=== PATIENT | female | born 1990 | race African-American/Black ===

== ENCOUNTER 2019-05-23 21:03 | Emergency (ER) | payer OTHER ==
[2019-05-23 21:27] LABS: BILIRUBIN,URINE NEGATIVE (NEGATIVE); GLUCOSE, URINE (UA) NEGATIVE (NEGATIVE); KETONES,URINE (UA) NEGATIVE (NEGATIVE); LEUKOCYTE ESTERASE, URINE NEGATIVE (NEGATIVE); NITRITE,URINE NEGATIVE (NEGATIVE); OCCULT BLOOD,URINE NEGATIVE (NEGATIVE); PROTEIN,URINE NEGATIVE (NEGATIVE); UROBILINOGEN,URINE 0.2 (NORMAL) E.U./dL (NORMAL)
[2019-05-23 21:29] LABS: CLARITY,URINE CLEAR (CLEAR); HCG UR QUAL NEGATIVE
--- NOTE | 2019-05-23 21:29 | ED Physician Documentation ---
PD HPI ABD PAIN - Stated complaint Stated Complaint: FEM /BK PX - Chief complaint Chief Complaint: UTI - History obtained from History obtained from: Patient - History of Present Illness Timing - onset: How many weeks ago (1-2) Timing - duration: Weeks (1-2) Timing - details: Gradual onset (She was having lower abdominal cramping and some dysuria and frequency. She was seen in clinic and she relates that she was told she had some blood in her urine and was going to be treated for a bladder infection based on her symptoms. She was treated with Macrobid for a week without any change or improvement. She was seen back in the clinic and changed to ciprofloxacin. She states there was some white cells on her urine. It is unclear if there was a culture done. Last 2 days since starting the Cipro she has had nausea and diarrhea. She denies any vomiting.) Quality: Cramping, Aching Location: Suprapubic Radiation: No: Lower back Improved by: No: Eating Worsened by: No: Eating Associated symptoms: Nausea, Diarrhea (for 2 days), Dysuria (1-2 weeks). No: Fever Similar symptoms before: Has not had sx before Recently seen: Clinic Review of Systems Constitutional: denies: Fever, Chills, Myalgias Nose: denies: Rhinorrhea / runny nose, Congestion Throat: denies: Sore throat Respiratory: denies: Cough GI: reports: Nausea, Diarrhea. denies: Abdominal Pain, Vomiting, Constipation : reports: Dysuria, Frequency. 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 - Present Medications Home Medications: Ambulatory Orders Medication Instructions Recorded Confirmed Ciprofloxacin [Cipro] 500 mg PO BID 05/23/19 05/23/19 Diphenoxylate/Atropine [Lomotil] 1 each PO QID PRN #12 tablet 05/24/19 Metronidazole [Flagyl] 500 mg PO BID #14 tablet 05/24/19 Ondansetron Odt [Zofran] 4 mg TL Q6H PRN #10 tablet 05/24/19 - Allergies Allergies/Adverse Reactions: Allergies Allergy/AdvReac Type Severity Reaction Status Date / Time No Known Drug Allergies Allergy Verified 05/23/19 21:12 - Social History Does the pt smoke?: No Smoking Status: Never smoker Does the pt drink ETOH?: No Does the pt have substance abuse?: No - Immunizations Immunizations are current?: Yes - POLST Patient has POLST: No PD ED PE NORMAL - Vitals Vital signs reviewed: Yes - General General: Alert and oriented X 3, No acute distress, Well developed/nourished - HEENT HEENT: Pharynx benign - Neck Neck: Supple, no meningeal sign, No adenopathy - Cardiac Cardiac: RRR, No murmur - Respiratory Respiratory: Clear bilaterally - Abdomen Abdomen: Soft, Non tender - Female Female : 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 The vaginal vault shows a white milky discharge with malodor. There is no endocervical discharge. Uterus is nontender.) - Rectal Rectal: Deferred - Derm Derm: Normal color, Warm and dry Results - Vitals Vitals: Vital Signs - 24 hr 05/23/19 05/23/19 05/23/19 21:09 22:49 23:57 Temperature 37.0 C 37.3 C Heart Rate 87 73 62 Respiratory 18 15 16 Rate Blood Pressure 135/74 H 137/71 H 109/67 O2 Saturation 98 98 98 Oxygen O2 Source Room air - Labs Labs: Laboratory Tests 05/23/19 05/23/19 05/23/19 21:20 21:20 21:37 WBC 9.1 RBC 4.35 Hgb 12.7 Hct 37.4 MCV 86.0 MCH 29.2 MCHC 34.0 RDW 12.1 Plt Count 281 MPV 10.0 Neut # (Auto) 5.1 Lymph # (Auto) 3.3 [place] # (Auto) 0.5 Eos # (Auto) 0.1 Baso # (Auto) 0.1 Absolute Nucleated RBC 0.00 Nucleated RBC % 0.0 Sodium Potassium Chloride Carbon Dioxide Anion Gap BUN Creatinine Estimated GFR (MDRD) Glucose Calcium Total Bilirubin AST ALT Alkaline Phosphatase Total Protein Albumin Globulin Albumin/Globulin Ratio Lipase Urine Color YELLOW Urine Clarity CLEAR Urine pH 6.0 Ur Specific [place] <=1.005 <1.005 Urine Protein NEGATIVE Urine Glucose (UA) NEGATIVE Urine Ketones NEGATIVE Urine Occult Blood NEGATIVE Urine Nitrite NEGATIVE Urine Bilirubin NEGATIVE Urine Urobilinogen 0.2 (NORMAL) Ur Leukocyte Esterase NEGATIVE Ur Microscopic Review NOT INDICATED Urine Culture Comments NOT INDICATED Urine HCG, Qual NEGATIVE C. glabrata (PCR) C. krusei (PCR) Renee species DNA T. vaginalis (PCR) Bact Vaginosis (PCR) 05/23/19 05/23/19 21:37 22:41 WBC RBC Hgb Hct MCV MCH MCHC RDW Plt Count MPV Neut # (Auto) Lymph # (Auto) [place] # (Auto) Eos # (Auto) Baso # (Auto) Absolute Nucleated RBC Nucleated RBC % Sodium 137 Potassium 3.5 Chloride 103 Carbon Dioxide 23 Anion Gap 11.0 BUN 12 Creatinine 0.8 Estimated GFR (MDRD) 103 Glucose 127 H Calcium 9.3 Total Bilirubin 0.6 AST 17 ALT 16 Alkaline Phosphatase 52 Total Protein 7.9 Albumin 4.3 Globulin 3.6 Albumin/Globulin Ratio 1.2 Lipase 29 Urine Color Urine Clarity Urine pH Ur Specific [place] Urine Protein Urine Glucose (UA) Urine Ketones Urine Occult Blood Urine Nitrite Urine Bilirubin Urine Urobilinogen Ur Leukocyte Esterase Ur Microscopic Review Urine Culture Comments Urine HCG, Qual C. glabrata (PCR) NEGATIVE C. krusei (PCR) NEGATIVE Renee species DNA NEGATIVE T. vaginalis (PCR) NEGATIVE Bact Vaginosis (PCR) NEGATIVE PD MEDICAL DECISION MAKING - ED course Complexity details: reviewed results (Her pelvic exam was consistent with vaginitis. I think that was the origin of her symptoms in the first place. Her diarrhea now is likely antibiotic related so will stop the ciprofloxacin and go with some antiemetic and change her to Flagyl.), considered differential (It is unclear whether she originally had a UTI as she states her urine test had showed a little blood not obvious infection. Her urine today looks normal but may be because she is partly treated on the antibiotic. However her symptoms would be suggestive of other cause such as vaginitis and will do a pelvic exam.), d/w patient Departure - Departure Disposition: 01 Home, Self Care Clinical Impression: Bacterial vaginitis, Antibiotic-associated diarrhea, Nausea Condition: Stable Record reviewed to determine appropriate education?: Yes Instructions: ED Vaginosis Bacterial Follow-Up: GLENYS PARKINSON [Primary Care Provider] - Prescriptions: Diphenoxylate/Atropine [Lomotil] 1 each PO QID PRN #12 tablet PRN Reason: Diarrhea Metronidazole [Flagyl] 500 mg PO BID #14 tablet Ondansetron Odt [Zofran] 4 mg TL Q6H PRN #10 tablet PRN Reason: Nausea / Vomiting Comments: Ofloxacin. I would assume your nausea and diarrhea will taper down over the next day or 2 once off of that. Use ondansetron if needed for nausea and Lomotil if needed for diarrhea. Tylenol if needed for cramps or pains. Add the hydrocodone if needed and you have 4 tablets of that. Your exam looks consistent with a bacterial vaginitis. We will have you take metronidazole twice daily for a week for the infection. This antibiotic should not give you the diarrhea like the other one. Recheck if not improved well over the next couple of days. Discharge Date/Time: 05/24/19 00:15
[2019-05-23 21:43] LABS: BASOPHILS # (AUTO) 0.1 10^3/uL (0.0-0.1); BASOPHILS % (AUTO) 0.7 %; EOSINOPHILS # (AUTO) 0.1 10^3/uL (0.0-0.7); EOSINOPHILS % (AUTO) 1.4 %; HGB - HEMOGLOBIN 12.7 g/dL (12.0-16.0); LYMPHOCYTES # (AUTO) 3.3 10^3/uL (1.5-3.5); LYMPHOCYTES % (AUTO) 36.1 %; MEAN CORPUSCULAR HEMOGLOBIN 29.2 pg (27.0-31.0); MONOCYTES # (AUTO) 0.5 10^3/uL (0.0-1.0); MONOCYTES % (AUTO) 5.7 %; NEUTROPHILS # (AUTO) 5.1 10^3/uL (1.5-6.6); NEUTROPHILS % (AUTO) 55.9 %; PLT - PLATELET COUNT 281 10^3/uL (130-450); RED BLOOD COUNT 4.35 10^6/uL (4.20-5.40); RED CELL DISTRIBUTION WIDTH 12.1 % (12.0-15.0); WHITE BLOOD COUNT 9.1 x10^3/uL (4.8-10.8)
[2019-05-23] MEDS ORDERED: ONDANSETRON 4 MG/2 ML VIAL IVP STA (21:54)
[2019-05-23] MEDS ORDERED: KETOROLAC 15 MG/ML VIAL IVP STA (21:54)
[2019-05-23] MEDS ORDERED: MORPHINE 2 MG/ML CARPUJECT IVP STA (21:54)
[2019-05-23] MEDS ORDERED: SODIUM CHLORIDE 0.9% 1,000 ML IV ONE (21:54)
[2019-05-23 21:55] LABS: ALBUMIN 4.3 g/dL (3.2-5.5); ALBUMIN/GLOBULIN RATIO 1.2 (1.0-2.2); BILIRUBIN,TOTAL 0.6 mg/dL (0.2-1.0); CALCIUM 9.3 mg/dL (8.5-10.3); CREATININE 0.8 mg/dL (0.4-1.0); TOTAL PROTEIN 7.9 g/dL (6.7-8.2)
[2019-05-23] MEDS ORDERED: ONDANSETRON ODT 4 MG Prepack 2 TL PRN (22:49)
[2019-05-23] MEDS ORDERED: metroNIDAZOLE 500 MG/100 ML 500 MG/100 ML BAG IV ONE (22:49)
[2019-05-23] MEDS ORDERED: HYDROcod/ACET 5/325 Prepack 4 PO STA (22:50)
[2019-05-23] MEDS ORDERED: DIPHENOX/ATROPINE 2.5/0.025 MG TABLET PO STA (22:50)
[2019-05-23 23:59] VITALS: BP 109/67
[2019-05-24 01:09] LABS: CANDIDA GROUP DNA NEGATIVE (NEGATIVE); CANDIDA KRUSEI DNA NEGATIVE (NEGATIVE); TRICHOMONAS VAGINALIS DNA NEGATIVE (NEGATIVE)
[2019-05-24 22:17] LABS: TRICHOMONAS VAGINALIS DNA NEGATIVE (NEGATIVE)
== END 2019-05-24 00:15 | disposition home or self-care (01) ==
LOC: ED 21:03
DX: N76.0 Acute vaginitis (principal); K52.1 Toxic gastroenteritis and colitis; R11.0 Nausea; T36.8X5A Adverse effect of other systemic antibiotics, initial encounter
CPT/HCPCS: 36415; 80053; 81003; 81025; 83690; 85025; 87481; 87491; 87591; 87661; 87801; 96361; 96365; 96375; 99284; A9270; 81001; 87086

== ENCOUNTER 2019-09-27 15:41 | Emergency (ER) | payer OTHER ==
[2019-09-27 16:24] LABS: BASOPHILS % (AUTO) 0.5 %; EOSINOPHILS % (AUTO) 0.2 %; HGB - HEMOGLOBIN 12.7 g/dL (12.0-16.0); LYMPHOCYTES # (AUTO) 2.3 10^3/uL (1.5-3.5); LYMPHOCYTES % (AUTO) 26.3 %; MEAN CORPUSCULAR HGB CONC 33.6 g/dL (32.0-36.0); MEAN CORPUSCULAR VOLUME 89.2 fL (81.0-99.0); MEAN PLATELET VOLUME 9.8 fL (7.9-10.8); MONOCYTES # (AUTO) 0.5 10^3/uL (0.0-1.0); MONOCYTES % (AUTO) 5.5 %; NEUTROPHILS # (AUTO) 5.8 10^3/uL (1.5-6.6); NEUTROPHILS % (AUTO) 67.2 %; PLT - PLATELET COUNT 278 10^3/uL (130-450); RED BLOOD COUNT 4.24 10^6/uL (4.20-5.40); RED CELL DISTRIBUTION WIDTH 12.2 % (12.0-15.0); WHITE BLOOD COUNT 8.7 x10^3/uL (4.8-10.8)
[2019-09-27 16:41] LABS: ALBUMIN 4.5 g/dL (3.2-5.5); ALBUMIN/GLOBULIN RATIO 1.5 (1.0-2.2); BILIRUBIN,TOTAL 0.9 mg/dL (0.2-1.0); CALCIUM 9.1 mg/dL (8.5-10.3); CREATININE 0.6 mg/dL (0.4-1.0); TOTAL PROTEIN 7.5 g/dL (6.7-8.2)
--- NOTE | 2019-09-27 17:57 | ED Physician Documentation ---
History of Present Illness - Stated complaint Stated Complaint: PELVIC CRAMPING/VAGINAL BLEEDING - Chief complaint Chief Complaint: Abd Pain - History obtained from History obtained from: Patient, Family - History of Present Illness Timing: Today Pain level max: 3 Pain level now: 2 - Additonal information Additional information: 29-year-old female, 1 para 0. She states she is approximately 7 weeks . Started having vaginal bleeding approximately an hour ago. Also lower abdominal cramping. She states that she has not yet changed a pad. No change in sexual partners. No vaginal discharge. Nothing makes it better or worse. 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 - Present Medications Home Medications: Ambulatory Orders Medication Instructions Recorded Confirmed Ciprofloxacin [Cipro] 500 mg PO BID 05/23/19 05/23/19 Diphenoxylate/Atropine [Lomotil] 1 each PO QID PRN #12 tablet 05/24/19 Metronidazole [Flagyl] 500 mg PO BID #14 tablet 05/24/19 Ondansetron Odt [Zofran] 4 mg TL Q6H PRN #10 tablet 05/24/19 - Allergies Allergies/Adverse Reactions: Allergies Allergy/AdvReac Type Severity Reaction Status Date / Time No Known Drug Allergies Allergy Verified 09/27/19 15:43 - Living Situation Living Situation: reports: With family Living Arrangement: reports: At home - Social History Does the pt smoke?: No Smoking Status: Never smoker Does the pt drink ETOH?: No Does the pt have substance abuse?: No - Family History Family history: reports: Non contributory - Immunizations Immunizations are current?: Yes - POLST Patient has POLST: No PD ED PE NORMAL - Vitals Vital signs reviewed: Yes - General General: Alert and oriented X 3, No acute distress - HEENT HEENT: Moist mucous membranes - Neck Neck: Supple, no meningeal sign - Cardiac Cardiac: RRR, Strong equal pulses - Respiratory Respiratory: No respiratory distress, Clear bilaterally - Abdomen Abdomen: Soft, Non tender, Non distended - Female Female : Pt declined - Back Back: No CVA TTP - Derm Derm: Warm and dry, No rash - Extremities Extremities: No edema - Neuro Neuro: Alert and oriented X 3 - Psych Psych: Normal mood, Normal affect Results - Vitals Vitals: Vital Signs - 24 hr 09/27/19 09/27/19 15:43 18:44 Temperature 36.8 C 37.3 C Heart Rate 103 H 97 Respiratory 14 18 Rate Blood Pressure 140/76 H 134/73 H O2 Saturation 100 98 Oxygen O2 Source Room air - Labs Labs: Laboratory Tests 09/27/19 09/27/19 09/27/19 16:17 16:17 16:17 WBC 8.7 RBC 4.24 Hgb 12.7 Hct 37.8 MCV 89.2 MCH 30.0 MCHC 33.6 RDW 12.2 Plt Count 278 MPV 9.8 Neut # (Auto) 5.8 Lymph # (Auto) 2.3 [place] # (Auto) 0.5 Eos # (Auto) 0.0 Baso # (Auto) 0.0 Absolute Nucleated RBC 0.00 Nucleated RBC % 0.0 Sodium 136 Potassium 3.3 L Chloride 102 Carbon Dioxide 25 Anion Gap 9.0 BUN 9 Creatinine 0.6 Estimated GFR (MDRD) 143 Glucose 100 Calcium 9.1 Total Bilirubin 0.9 AST 17 ALT 18 Alkaline Phosphatase 42 Total Protein 7.5 Albumin 4.5 Globulin 3.0 Albumin/Globulin Ratio 1.5 Lipase 25 HCG, Quant 8918.00 Blood Type Blood Type Recheck 09/27/19 09/27/19 16:17 16:55 WBC RBC Hgb Hct MCV MCH MCHC RDW Plt Count MPV Neut # (Auto) Lymph # (Auto) [place] # (Auto) Eos # (Auto) Baso # (Auto) Absolute Nucleated RBC Nucleated RBC % Sodium Potassium Chloride Carbon Dioxide Anion Gap BUN Creatinine Estimated GFR (MDRD) Glucose Calcium Total Bilirubin AST ALT Alkaline Phosphatase Total Protein Albumin Globulin Albumin/Globulin Ratio Lipase HCG, Quant Blood Type A POSITIVE Blood Type Recheck A POSITIVE - Rads (name of study) OB US Radiology: Prelim report reviewed, EMP read contemporaneously, See rad report (. Single intrauterine at EGA 5 weeks 5 days with FABIÁN 05/24/2020 based on crown-rump length, which is discordant with clinical dates. 2. No heartbeat identified. ) PD MEDICAL DECISION MAKING - ED course Complexity details: reviewed results, re-evaluated patient, considered differential, d/w patient ED course: 29-year-old female, 1 para 0 with vaginal bleeding. Has a single i ntrauterine EGA X 5 days. No heartbeat identified. We will have her follow-up with her doctor for repeat hCG. She has an appointment with OB in 3 days. No evidence of ectopic . Patient counseled regarding signs and symptoms for which I believe and urgent re-evaluation would be necessary. Patient with good understanding of and agreement to plan and is comfortable going home at this time This document was made in part using voice recognition software. While efforts are made to proofread this document, sound alike and grammatical errors may occur. Departure - Departure Disposition: 01 Home, Self Care Clinical Impression: Threatened affecting intrauterine Condition: Good Instructions: ED Miscarriage Poss Follow-Up: GLENYS PARKINSON [Primary Care Provider] - Within 3 Days Comments: Follow-up with your doctor for repeat hCG in 3 days. Your hCG level is approximately 9000 today. Your ultrasound shows an intrauterine with an estimated gestational age of 5 weeks and 5 days. Discharge Date/Time: 09/27/19 19:08
--- NOTE | 2019-09-27 18:40 | Ultrasound Report ---
Reason: cramping, bleeding, 7 weeks preg Procedure Date: 09/27/2019 Accession Number: [id number] / [id number] Procedure: US - OB First Trimester CPT Code: Final Report FULL RESULT: EXAM: FIRST TRIMESTER OBSTETRIC ULTRASOUND (Less than 11 weeks) EXAM DATE: 09/27/2019 05:31 PM. CLINICAL HISTORY: Cramping for 2 days. Bleeding. 7 weeks preg. LMP: 08/06/2019. COMPARISONS: None. TECHNIQUE: Transabdominal and transvaginal ultrasound examination with static image documentation. CLINICAL DATES: EGA 7 weeks 3 days with FABIÁN 05/12/2020 based on LMP. ASSESSMENT: Gestational Sac: Single intrauterine. Mean gestational sac diameter: 13.4 mm = 6 weeks 1 day. Embryo: CRL (crown-rump length) 2.0 mm = 5 weeks 5 days. Cardiac activity: None visualized. Yolk sac: 1.6 mm. Amniotic fluid: Not accurately assessed at this gestational age. Early placenta: Not visible at this gestational age. Other: Two perigestational fluid collections noted, 0.6 x 0.2 x 0.3 cm on the left, 0.5 x 0.3 x 0.2 cm on the right. MATERNAL STRUCTURES: Uterus: Anterior. Unremarkable. Cervix: Closed. Right Ovary/Adnexa: The ovary measures 4.8 x 2.5 x 3.3 cm, volume 18.4 cc. Unremarkable. Left Ovary/Adnexa: The ovary measures 2.1 x 1.2 x 1.8 cm, volume 2.4 cc. Unremarkable. Free Fluid: Small amount. Other: None. IMPRESSION: 1. Single intrauterine at EGA 5 weeks 5 days with FABIÁN 05/24/2020 based on crown-rump length, which is discordant with clinical dates. 2. No heartbeat identified. RADIA
[2019-09-27 18:45] VITALS: BP 134/73
== END 2019-09-27 19:08 | disposition home or self-care (01) ==
LOC: ED 15:41
DX: O20.0 Threatened abortion (principal); Z3A.01 Less than 8 weeks gestation of pregnancy
CPT/HCPCS: 36415; 76801; 80053; 83690; 84702; 85025; 86900; 86901; 99283; 99284

== ENCOUNTER 2021-08-16 08:00 | Outpatient (CLI) | payer OTHER ==
[2021-08-18 20:19] LABS: BACTERIAL VAGINOSIS DNA NEGATIVE (NEGATIVE); CANDIDA GLABRATA DNA NEGATIVE (NEGATIVE); CANDIDA GROUP DNA NEGATIVE (NEGATIVE); CANDIDA KRUSEI DNA NEGATIVE (NEGATIVE); TRICHOMONAS VAGINALIS DNA NEGATIVE (NEGATIVE)
== END 2021-08-16 23:59 | disposition home or self-care (01) ==
LOC: LAB.WC 08:00
PROVIDERS: ATTEND Obstetrics & Gynecology
DX: O99.891 Other specified diseases and conditions complicating pregnancy (principal); N89.8 Other specified noninflammatory disorders of vagina
CPT/HCPCS: 87661; 87801

== ENCOUNTER 2021-08-24 12:25 | Outpatient (CLI) | payer OTHER ==
[2021-08-24 13:09] LABS: BASOPHILS % (AUTO) 0.3 %; EOSINOPHILS # (AUTO) 0.1 10^3/uL (0.0-0.7); EOSINOPHILS % (AUTO) 0.6 %; HCT - HEMATOCRIT 38.9 % (37.0-47.0); HGB - HEMOGLOBIN 13.7 g/dL (12.0-16.0); LYMPHOCYTES # (AUTO) 2.2 10^3/uL (1.5-3.5); LYMPHOCYTES % (AUTO) 22.1 %; MEAN CORPUSCULAR HEMOGLOBIN 30.6 pg (27.0-31.0); MEAN CORPUSCULAR HGB CONC 35.2 g/dL (32.0-36.0); MEAN PLATELET VOLUME 9.9 fL (7.9-10.8); MONOCYTES # (AUTO) 0.4 10^3/uL (0.0-1.0); MONOCYTES % (AUTO) 4.3 %; NEUTROPHILS # (AUTO) 7.2 10^3/uL (1.5-6.6); NEUTROPHILS % (AUTO) 72.4 %; PLT - PLATELET COUNT 266 10^3/uL (130-450); RED BLOOD COUNT 4.47 10^6/uL (4.20-5.40); RED CELL DISTRIBUTION WIDTH 11.8 % (12.0-15.0)
[2021-08-24 13:26] LABS: BILIRUBIN,URINE NEGATIVE (NEGATIVE); GLUCOSE, URINE (UA) NEGATIVE (NEGATIVE); KETONES,URINE (UA) NEGATIVE (NEGATIVE); LEUKOCYTE ESTERASE, URINE NEGATIVE (NEGATIVE); NITRITE,URINE NEGATIVE (NEGATIVE); OCCULT BLOOD,URINE NEGATIVE (NEGATIVE); PH,URINE 6.5 PH (5.0-7.5); PROTEIN,URINE NEGATIVE (NEGATIVE); UROBILINOGEN,URINE 0.2 (NORMAL) E.U./dL (NORMAL)
[2021-08-24 13:37] LABS: CLARITY,URINE CLEAR (CLEAR)
[2021-08-24 13:38] LABS: BACTERIA,URINE None Seen /HPF (None Seen); RBC,URINE None Seen /HPF (0-5); SQUAMOUS EPITHELIAL CELL,UR RARE Squamous (<= Few); WBC CLUMPS,URINE NONE SEEN; WBC,URINE 0-3 /HPF (0-5)
[2021-08-25 09:47] LABS: HEPATITIS B SURFACE ANTIGEN NON-REACTIVE (NON-REACTIVE)
[2021-08-25 12:47] LABS: HIV AG/AB 4TH GEN NON-REACTIVE (NON-REACTIVE)
[2021-08-25 13:42] LABS: HEPATITIS C ANTIBODY NON-REACTIVE (NON-REACTIVE)
== END 2021-08-24 12:26 | disposition home or self-care (01) ==
LOC: LAB 12:25
PROVIDERS: ATTEND Obstetrics & Gynecology
DX: Z34.90 Encounter for supervision of normal pregnancy, unspecified, unspecified trimester (principal); Z36.89 Encounter for other specified antenatal screening
CPT/HCPCS: 36415; 81001; 85025; 86592; 86762; 86787; 86803; 86850; 86900; 86901; 87086; 87340; 87389

== ENCOUNTER 2021-10-06 12:19 | Outpatient (CLI) | payer OTHER ==
[2021-10-07 13:27] LABS: AFP MOM 1.86; AGE RISK DOWN SYNDROME 1 IN 574; CIGARETTE SMOKER? NOT GIVEN; DONOR AGE: EGG RETRIEVAL NOT GIVEN; DONOR EGG NO; HCG MOM 1.34; HX OF NEURAL TUBE DEFECTS NO; INHIBIN A MOM 1.01; INSULIN DEPEND DIABETIC NO; MATERNAL WEIGHT 202 lbs; MSS DOWN SYNDROME RISK <1 IN 5000; MSS3 TRISOMY 18 RISK <1 IN 5000; NUMBER OF FETUSES 1; PREV PREGNANCY DOWN SYND NO; RISK FOR ONTD 1 IN 2218
== END 2021-10-06 12:20 | disposition home or self-care (01) ==
LOC: LAB 12:19
PROVIDERS: ATTEND Obstetrics & Gynecology
DX: Z34.90 Encounter for supervision of normal pregnancy, unspecified, unspecified trimester (principal)
CPT/HCPCS: 36415; 81511

== ENCOUNTER 2021-10-20 09:51 | Outpatient (CLI) | payer OTHER ==
--- NOTE | 2021-10-20 16:29 | Ultrasound Report ---
PROCEDURE: OB Detailed Eval INDICATIONS: SUPERVISION NORMAL OUTSIDE/PRIOR DATING DATA: Last menstrual period (LMP): 06/02/2021. LMP-based estimated date of delivery (FABIÁN): 03/09/2022. First dating scan (date and location): 08/02/2021. Estimated date of delivery (FABIÁN) from first dating scan: 03/10/2022. The below data below was generated using the study generated FABIÁN of 03/10/2022 TECHNIQUE: Real-time scanning was performed of the fetus, with image documentation and biometric measurements. Endovaginal scanning: Not indicated COMPARISON: None. FINDINGS: General: A single living intrauterine gestation is present. Presentation: Breech Placenta: Placental position is right anterior, without previa. Inferior edge of anterior placenta i s 1 cm from cervical os. Amniotic fluid index: 15.1 cm, normal for gestational age. heart rate: 166 beats per minute. Maternal cervical canal: 4.2 cm long; normal length is 2.5 cm or more. biometrics: Biparietal diameter: 4.86 cm, 20 weeks, 5 days. Head circumference: 17.58 cm, 20 weeks, 1 day. Abdominal circumference: 15.03 cm, 20 weeks, 2 days. Femur length: 3.02 cm, 19 weeks, 2 days. Estimated gestational age from initial scan: 19 weeks, 6 days. Composite gestational age from present scan: 20 weeks, 1 day. Estimated weight and percentile: 320 g, 48.6%. Measurement variability in biometric dating: +/- 10 days from 12-20 weeks gestation, +/- 2 weeks from 20-30 weeks gestation, +/- 3 weeks at 30 weeks gestation or later. Anatomic survey: Neuro: Ventricles are normal at less than 10 mm. Cisterna magna is normal at 3-11 mm. Cerebellum i s normal in size and morphology. Nuchal skin fold: Normal at less than 6 mm between 14 and 20 weeks gestational age. Face: Nose and lips, facial profile are normal. Spine: No evidence for spina bifida. Heart: 4-chambered heart is present, with normal ventricular outflow tracts. Diaphragm: Diaphragm is intact. Stomach: Left-sided stomach is present. Kidneys: No hydronephrosis. Normal is less than 5 mm in 2nd trimester, less than 7 mm in 3rd trimester. Cord: 3 vessel cord has orthotopic insertion. Bladder: Normal in size. Extremities: All 4 extremities are visualized. IMPRESSION: 1. Single live intrauterine with fetus in breech presentation. heart rate is 166 bpm. Normal amount of amniotic fluid. Normal growth. Estimated weight is at 48.6%. 2. Normal anatomic survey. 3. Low-lying placenta with the lower edge of placenta 1 cm from cervical os. No carlos placenta previa . Follow-up ultrasound is recommended. Reviewed by: Joaquin Steinberg MD on 10/20/2021 4:27 PM PST Approved by: Joaquin Steinberg MD on 10/20/2021 4:27 PM PST Station ID: [id number]
== END 2021-10-20 09:52 | disposition home or self-care (01) ==
LOC: DI 09:51
PROVIDERS: ATTEND Obstetrics & Gynecology
DX: Z36.89 Encounter for other specified antenatal screening (principal); O44.42 Low lying placenta NOS or without hemorrhage, second trimester; O32.1XX0 Maternal care for breech presentation, not applicable or unspecified; Z3A.20 20 weeks gestation of pregnancy

== ENCOUNTER 2021-10-28 08:00 | Outpatient (CLI) | payer OTHER ==
[2021-10-28 18:52] LABS: BACTERIAL VAGINOSIS DNA NEGATIVE (NEGATIVE); CANDIDA GLABRATA DNA NEGATIVE (NEGATIVE); CANDIDA GROUP DNA NEGATIVE (NEGATIVE); CANDIDA KRUSEI DNA NEGATIVE (NEGATIVE); TRICHOMONAS VAGINALIS DNA NEGATIVE (NEGATIVE)
== END 2021-10-28 23:59 ==
LOC: LAB 08:00
PROVIDERS: ATTEND Obstetrics & Gynecology
DX: N76.0 Acute vaginitis (principal)
CPT/HCPCS: 87661; 87801

== ENCOUNTER 2021-10-28 12:56 | Outpatient (CLI) | payer OTHER ==
[2021-10-28 13:30] LABS: BILIRUBIN,URINE NEGATIVE (NEGATIVE); GLUCOSE, URINE (UA) NEGATIVE (NEGATIVE); KETONES,URINE (UA) NEGATIVE (NEGATIVE); LEUKOCYTE ESTERASE, URINE NEGATIVE (NEGATIVE); NITRITE,URINE NEGATIVE (NEGATIVE); OCCULT BLOOD,URINE NEGATIVE (NEGATIVE); PROTEIN,URINE NEGATIVE (NEGATIVE); UROBILINOGEN,URINE 0.2 (NORMAL) E.U./dL (NORMAL)
[2021-10-28 13:34] LABS: CLARITY,URINE CLEAR (CLEAR)
--- NOTE | 2021-10-28 13:42 | PROVIDER PROGRESS NOTE ---
- HPI Chief Complaint: Labor Current : Vital Signs Heart Rate 99 10/28/21 13:24 Respiratory Rate 17 10/28/21 13:24 Blood Pressure 129/68 10/28/21 13:24 O2 Saturation 100 10/28/21 13:24 Temperature Heart Rate 99 10/28/21 13:24 Respiratory Rate 17 10/28/21 13:24 Blood Pressure 129/68 10/28/21 13:24 O2 Saturation 100 10/28/21 13:24 - Procedures Diagnosis/Indication for NST: labor - Plan Plan: 31yo at 21.1w, care at , sent to triage from her routine OB appointment for evaluation for pelvic pressure. Patient reports intermittent 3/10 pelvic pain and pressure for about a week. Denies leaking fluid or vaginal bleeding. Good movement. Vaginal testing obtained at appointment. complicated by low lying placenta, depression, asthma. HR 99 BP129/68 R17 100% GEN: NAD CV: Regular rate Resp: Breathing unlabored Abd: soft, nt Ext: nt, no edema Dopplers 150s Mccaskill: no contractions CL 4cm, no funneling UA neg 31yo at 21.1w, false labor - CL reassuring, patient reassured - labor precautions - Discharge to home, follow up as scheduled or earlier prn
[2021-10-28 13:49] VITALS: BP 128/68
== END 2021-10-28 13:45 | disposition home or self-care (01) ==
LOC: WFO 12:56 → FBP 12:59 → WFO 13:45
PROVIDERS: ATTEND Obstetrics & Gynecology
DX: O47.02 False labor before 37 completed weeks of gestation, second trimester (principal); Z3A.21 21 weeks gestation of pregnancy; N76.0 Acute vaginitis
CPT/HCPCS: 81001; 81003; 87086; 87661; 87801; 99214

== ENCOUNTER 2021-12-08 12:46 | Outpatient (CLI) | payer OTHER ==
[2021-12-08 13:57] LABS: HCT - HEMATOCRIT 34.2 % (37.0-47.0); HGB - HEMOGLOBIN 11.9 g/dL (12.0-16.0); MEAN CORPUSCULAR HEMOGLOBIN 30.1 pg (27.0-31.0); MEAN CORPUSCULAR HGB CONC 34.8 g/dL (32.0-36.0); MEAN CORPUSCULAR VOLUME 86.4 fL (81.0-99.0); MEAN PLATELET VOLUME 9.8 fL (7.9-10.8); RED BLOOD COUNT 3.96 10^6/uL (4.20-5.40); RED CELL DISTRIBUTION WIDTH 12.1 % (12.0-15.0); WHITE BLOOD COUNT 8.3 x10^3/uL (4.8-10.8)
== END 2021-12-08 12:47 | disposition home or self-care (01) ==
LOC: LAB 12:46
PROVIDERS: ATTEND Obstetrics & Gynecology
DX: Z34.90 Encounter for supervision of normal pregnancy, unspecified, unspecified trimester (principal); Z36.89 Encounter for other specified antenatal screening
CPT/HCPCS: 36415; 82950; 85027

== ENCOUNTER 2021-12-17 15:44 | Outpatient (CLI) | payer OTHER ==
--- NOTE | 2021-12-18 02:09 | Ultrasound Report ---
PROCEDURE: OB F/U or Repeat INDICATIONS: LOW LYING PLACENTA OUTSIDE/PRIOR DATING DATA: Last menstrual period (LMP): 06/05/2021. LMP-based estimated date of delivery (FABIÁN): 03/09/2022. First dating scan (date and location): 08/04/2021. Estimated date of delivery (FABIÁN) from first dating scan: 03/10/2022. The below data below was generated using the ultrasound derived FABIÁN of 03/10/2022 TECHNIQUE: Real-time scanning was performed of the fetus, with image documentation and biometric measurements. COMPARISON: 10/20/2021. FINDINGS: General: A single living intrauterine gestation is present. Presentation: Vertex Placenta: Placental position is anterior, without previa. The inferior margin of the placenta is suellen roximately 5.4 cm from the internal cervical os. Amniotic fluid index: 16.4 cm, within normal limits for gestational age. heart rate: 166 beats per minute. Maternal cervical canal: 5.5 cm long; normal length is 2.5 cm or more. IMPRESSION: 1. Single living intrauterine redemonstrated. 2. Interval resolution of low-lying placenta. Reviewed by: Curly Vera MD on 12/18/2021 2:08 AM PDT Approved by: Curly Vera MD on 12/18/2021 2:08 AM PDT Station ID: [id number]
== END 2021-12-17 15:45 | disposition home or self-care (01) ==
LOC: DI 15:44
PROVIDERS: ATTEND Obstetrics & Gynecology
DX: Z09 Encounter for follow-up examination after completed treatment for conditions other than malignant neoplasm (principal); Z87.59 Personal history of other complications of pregnancy, childbirth and the puerperium

== ENCOUNTER 2021-12-27 08:00 | Outpatient (CLI) | payer OTHER ==
[2021-12-27 23:17] LABS: CHLAMYDIA TRACHOMATIS DNA NEGATIVE (NEGATIVE); NEISSERIA GONORRHOEAE DNA NEGATIVE (NEGATIVE); TRICHOMONAS VAGINALIS DNA NEGATIVE (NEGATIVE)
== END 2021-12-27 23:59 | disposition home or self-care (01) ==
LOC: LAB.WC 08:00
PROVIDERS: ATTEND Obstetrics & Gynecology
DX: Z11.3 Encounter for screening for infections with a predominantly sexual mode of transmission (principal)
CPT/HCPCS: 87491; 87591; 87661